=== PATIENT | male | born 1985 | race Caucasian/White ===

== ENCOUNTER 2016-09-03 17:44 | Emergency (ER) | payer BC ==
[~2016-09-03] VITALS: Ht 177.8 cm; Wt 103.3 kg
[~2016-09-03 17:44] MED LIST: ATV1 PO; CETI10TA84 PO; LAMO200T38 PO
[2016-09-03 18:03] VITALS: TEMP 36.5; Ht 177.8 cm; Wt 103.3 kg
[2016-09-03] MEDS ORDERED: LORAZEPAM 1 MG TAB SL STA (18:20)
[2016-09-03] MEDS ORDERED: ATV/1 PO (18:21)
--- NOTE | 2016-09-03 18:24 | EMERGENCY ROOM VISIT NOTE ---
History Report prepared by Judd: Aislinn Shaver Under the Supervision of: Dr. Carlos Klein M.D. First contact with patient: 18:13 Chief Complaint: SEIZURE Stated Complaint: DROWSINESS,FORGETFUL,SEIZURES Nursing Triage Summary: pt has seizure disorder, pt started on new medication on Saturday today pt having difficulty speaking, which occurs with his seizures pt speech is slow but clear at triage History of Present Illness The patient is a 30 year old male who presents to the Emergency Room with complaints of a seizure that began prior to arrival. The patient states that he has a history of seizures and states that they have been well under control over the last several years. He denies any recent Grand-mal seizures. The patient states that he last week he started taking Onfi, and states that his Lamictal was reduced. He additionally notes that he takes Keppra and Vimpat. The patient states that today he has had difficulty speaking, which is a typical symptom with his seizures. He states that he has noticed more seizures since starting the new medication. The patient denies any alcohol use. Source of History: patient Onset: prior to arrival Position: other (global) Quality: other (seizure) Note: Associated Symptoms: difficulty speaking. Review of Systems See HPI for pertinent positives & negatives. A total of 10 systems reviewed and were otherwise negative. Past Medical & Surgical Medical Problems: (1) Seizure Surgical Problems: (1) [place] teeth extracted Family History Cancer Social History Smoking Status: Never Smoker Alcohol Use: occasionally Marital Status: single Occupation Status: employed Current/Historical Medications Scheduled Lacosamide (Vimpat), 300 MG PO QPM Lacosamide (Vimpat), 200 MG PO QAM Lamotrigine (Lamictal), 300 MG PO BID Levetiracetam (Keppra), 2,000 MG PO BID Scheduled PRN Lorazepam (Ativan), 1 MG PO Q6H PRN for Anxiety/Agitation Lorazepam (Lorazepam), 1 MG PO DAILY PRN for 1ST SIGN OF SEIZURE Allergies Coded Allergies: No Known Allergies (Unverified , 09/03/16) Physical Exam Vital Signs Date Time Temp Pulse Resp B/P Pulse Ox O2 Delivery O2 Flow Rate FiO2 09/03/16 18:33 56 18 136/52 97 Room Air 09/03/16 18:21 72 09/03/16 18:03 36.5 56 20 151/87 97 Room Air Physical Exam GENERAL: Patient is a healthy-appearing well-nourished HEAD: Normocephalic atraumatic EYES: Ocular movements intact pupils equal and react to light OROPHARYNX mucous membranes are moist no exudates present no erythema or edema present NECK: Supple no nuchal rigidity CHEST: Good equal expansion LUNGS: Clear and equal to auscultation CARDIAC: Normal S1 and S2 ABDOMEN: Soft nontender no guarding BACK: No CVA tenderness EXTREMITIES: No pain upon palpation normal muscle strength in all groups no clubbing cyanosis or edema NEURO: Patient is following commands is answering questions appropriately. Alert and oriented x3 Cranial Nerves 2-12 grossly intact Medical Decision & Procedures Medications Administered Medications (Trade) Dose Ordered Sig/Ruperto Route Start Time Stop Time Status Last Admin Dose Admin Lorazepam (Ativan Tab) 1 mg NOW STAT SL 09/03/16 18:20 09/03/16 18:21 DC 09/03/16 18:51 1 MG ED Course 1815: Past medical records reviewed. The patient was evaluated in room B11A. A complete history and physical examination was performed. I discussed all the exam findings with him and I discussed the treatment plan. He verbalized complete understanding and agreement. He is ready to go home. 1819: Ordered Ativan Tab 1 mg SL. Medical Decision Differential diagnosis: Etiologies such as infection, hypoglycemia, electrolyte abnormalities, cardiac sources, intracerebral event, trauma, toxicologic, neurologic, as well as others were entertained. This is a 30-year-old male who is on a number of seizure medications. The patient is managed by a doctor in [place]. He is up here for his job. The patient is having hard time forming words and states that this is normal for him when he is having seizure outbreak. The patient notes that his medication was recently changed last week. I offered to do a full workup on the patient including blood work along with a CAT scan of the head however the patient is refusing this and is simply requesting Ativan. I stressed the need for follow- up with the patient's neurologist on for the. He was given a limited supply of Ativan. Patient was in agreement with the treatment plan. Impression Primary Impression: Seizure Scribe Attestation The scribe's documentation has been prepared under my direction and personally reviewed by me in its entirety. I confirm that the note above accurately reflects all work, treatment, procedures, and medical decision making performed by me. Departure Information Dispostion Home / Self-Care Prescriptions Lorazepam (ATIVAN) 1 Mg Tab 1 MG PO Q6H Y for Anxiety/Agitation, #20 TAB Prov: Carlos Klein MD 09/03/16 Referrals No Doctor, Assigned (PCP) Forms HOME CARE DOCUMENTATION FORM, IMPORTANT VISIT INFORMATION, School Instructions, Work Instructions Patient Instructions My [facility], Seizure Partial Additional Instructions You received narcotic or benzodiazepene medication while in the emergency room today. Do not drive, operate heavy machinery, or drink alcohol under the influence of this medication. You have been examined and treated today on an emergency basis only. This is not a substitute for, or an effort to provide, complete comprehensive medical care. It is impossible to recognize and treat all injuries or illnesses in a single emergency department visit. It is therefore important that you follow up closely with your PCP. Call as soon as possible for an appointment. Thank you for your time and consideration. I look forward to speaking with you again soon. Please don't hesitate to call us if you have any questions.
[2016-09-03 18:33] VITALS: BP 136/52; PULSE 56; O2SAT 97
[2016-09-03] MEDS ORDERED: LACO150T PO (18:37)
[2016-09-03] MEDS ORDERED: LAMO150T32 PO (18:37)
[2016-09-03] MEDS ORDERED: LACO200T PO (18:37)
[2017-03-01] MEDS ORDERED: KPP/1000 PO (11:44)
== END 2016-09-03 18:54 | disposition home or self-care (01) ==
LOC: C.EDB 17:45
DX: R56.9 Unspecified convulsions (principal); Z80.9 Family history of malignant neoplasm, unspecified; Z79.899 Other long term (current) drug therapy

== ENCOUNTER → 2017-01-28 | Outpatient (CLI) | payer BC ==
[~2017-01-28] MED LIST changes: -CETI10TA84 PO; +KPP/1000 PO; +LACO100T PO; +LACO150T PO; +LACO200T PO; +LAMO150T32 PO
[2017-01-28 10:38] LABS: HEMATOCRIT 41.8 % (42-52); MEAN CELL VOLUME 83.4 fL (80-100); MEAN CORPUSCULAR HEMOGLOBIN 29.7 pg (25-34); MEAN CORPUSCULAR HGB CONC 35.6 g/dl (32-36); MEAN PLATELET VOLUME 9.8 fL (7.4-10.4); PLATELET COUNT 176 K/uL (130-400); RED BLOOD COUNT 5.01 M/uL (4.7-6.1)
[2017-01-28 10:49] LABS: PARTIAL THROMBOPLASTIN RATIO 1.2; PROTHROMBIN TIME (PATIENT) 10.7 SECONDS (9.0-12.0)
[2017-01-28 11:11] LABS: ALT/SGPT 26 U/L (12-78); AST/SGOT 20 U/L (15-37); BLOOD UREA NITROGEN 14 mg/dl (7-18); BUN/CREATININE RATIO 11.9 (10-20); CALCIUM 9.2 mg/dl (8.5-10.1); CARBON DIOXIDE 31 mmol/L (21-32); CHLORIDE 106 mmol/L (98-107); GLUCOSE 87 mg/dl (70-99); POTASSIUM 3.9 mmol/L (3.5-5.1); SODIUM 141 mmol/L (136-145)
[2017-01-28 11:13] LABS: ALB/GLOB RATIO 1.2 (0.9-2); ALKALINE PHOSPHATASE 90 U/L (45-117)
[2017-01-28 12:48] LABS: URINE APPEARANCE CLEAR (CLEAR); URINE BILIRUBIN NEG (NEG); URINE COLOR YELLOW; URINE NITRITE NEG (NEG); URINE PH 7.5 (4.5-7.5); URINE SPECIFIC GRAVITY 1.024 (1.000-1.030); UROBILINOGEN NEG (NEG); ZZUR CULT IF INDIC CLEAN CATCH NO
[2017-01-28 12:58] LABS: MANUAL MICROSCOPIC REQUIRED? NO; REVIEW REQ? NO
== END | disposition home or self-care (01) ==
LOC: C.LAB1850 09:51
PROVIDERS: ATTEND Neurological Surgery
DX: Z01.812 Encounter for preprocedural laboratory examination (principal); Z79.01 Long term (current) use of anticoagulants; Z51.81 Encounter for therapeutic drug level monitoring; Z01.810 Encounter for preprocedural cardiovascular examination; Z01.818 Encounter for other preprocedural examination

== ENCOUNTER → 2017-01-29 | Outpatient (CLI) | payer BC ==
--- NOTE | 2017-01-29 09:50 | DIAGNOSTIC IMAGING REPORT ---
CHEST 2 VIEWS ROUTINE CLINICAL HISTORY: 31 years-old Male presenting with PRE OP. TECHNIQUE: PA and lateral views of the chest were obtained. COMPARISON: None. FINDINGS: Cardiomediastinal silhouette normal. Lungs and pleural spaces clear. Osseous structures normal. Upper abdomen normal. IMPRESSION: 1. No acute cardiopulmonary disease. Electronically signed by: Jonh Dunn M.D. 01/29/2017 9:49 AM Dictated Date/Time: 01/29/2017 9:48 AM
== END | disposition home or self-care (01) ==
LOC: C.RAD1850 09:28
PROVIDERS: ATTEND Family Medicine
DX: Z01.818 Encounter for other preprocedural examination (principal)

== ENCOUNTER → 2017-02-28 | Outpatient (CLI) | payer BC ==
[2017-02-28 13:20] LABS: HEMATOCRIT 40.9 % (42-52); MEAN CELL VOLUME 85.4 fL (80-100); PLATELET COUNT 190 K/uL (130-400); RED BLOOD COUNT 4.79 M/uL (4.7-6.1)
[2017-02-28 13:24] LABS: URINE APPEARANCE CLEAR (CLEAR); URINE BILIRUBIN NEG (NEG); URINE COLOR YELLOW; URINE EPITHELIAL CELL AUTO 0-5 /lpf (0-5); URINE NITRITE NEG (NEG); URINE SPECIFIC GRAVITY 1.012 (1.000-1.030); UROBILINOGEN NEG (NEG); ZZUR CULT IF INDIC CLEAN CATCH NO
[2017-02-28 13:30] LABS: MANUAL MICROSCOPIC REQUIRED? NO; REVIEW REQ? NO
[2017-02-28 13:35] LABS: PARTIAL THROMBOPLASTIN RATIO 1.2; PROTHROMBIN TIME (PATIENT) 10.7 SECONDS (9.0-12.0)
[2017-02-28 13:54] LABS: ALT/SGPT 22 U/L (12-78); BLOOD UREA NITROGEN 12 mg/dl (7-18); BUN/CREATININE RATIO 12.1 (10-20); CALCIUM 9.5 mg/dl (8.5-10.1); CARBON DIOXIDE 31 mmol/L (21-32); CHLORIDE 104 mmol/L (98-107); GLUCOSE 72 mg/dl (70-99); POTASSIUM 4.2 mmol/L (3.5-5.1); SODIUM 139 mmol/L (136-145)
[2017-02-28 13:57] LABS: ALB/GLOB RATIO 1.2 (0.9-2); ALKALINE PHOSPHATASE 85 U/L (45-117); AST/SGOT 20 U/L (15-37)
== END | disposition home or self-care (01) ==
LOC: C.LAB1850 11:34
PROVIDERS: ATTEND Neurological Surgery
DX: Z01.812 Encounter for preprocedural laboratory examination (principal); Z79.01 Long term (current) use of anticoagulants

== ENCOUNTER 2017-03-01 16:52 | Emergency (ER) | payer BC ==
[~2017-03-01] VITALS: Ht 182.9 cm; Wt 110.0 kg
[~2017-03-01 16:52] MED LIST changes: -ATV1 PO; -LACO100T PO; -LAMO200T38 PO
[2017-03-01 16:58] VITALS: TEMP 36.5; Ht 182.9 cm; Wt 110.0 kg
[2017-03-01] MEDS ORDERED: SODIUM CHLORIDE 0.9% 1000ML 1,000 ML IV STA (17:23)
--- NOTE | 2017-03-01 17:29 | EMERGENCY ROOM VISIT NOTE ---
History Report prepared by Judd: Romain Villagomez Under the Supervision of: Dr. Deya Fall D.O. First contact with patient: 17:05 Chief Complaint: DIZZY Stated Complaint: DIZZY,FELL OVER Nursing Triage Summary: Pt developed dizziness while working outside today and fell down, did not lose consciousness. Hit left side of head on a piece of work equipment. Feeling sick last few days with runny nose, sore throat, sneezy, and has been taking " a lot of dayquil and nyquil". Denies any nausea or vomiting. Denies any headache. Verbalizes probable poor water intake today working in the sun. History of Present Illness The patient is a 31 year old male who presents to the Emergency Room with complaints of two episodes of dizziness occurring around noon and again one hour ago. 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 He states that three hours later while walking outside he got dizzy, fell, and hit the left side of his head. The patient additionally sates that recently he has felt sick with a runny nose, sore throat, and a cough. The patient denies any fevers, chills, shortness of breath, chest pain, palpitations, nausea, and vomiting. The patient additionally states that he has been taking NyQuil and DayQuil, and he states that he has not drank enough water or had enough food today. The patient notes that he has a history of epilepsy, and he has been taking his medications very regularly including Vimpat, Keppra, and Lamictal, and he has not had any recent changes in medications or changes in caffeine intake. The patient states that his last seizure was a couple of days ago, and he states that his seizures are abnormal, and they present as a staring spell for 10 to 15 seconds. The patient states that he took lorazepam after the first episode of dizziness. He states that no one is sick around him, he denies any recent alcohol or drug use, change in bowel movements, and any urinary symptoms. Pt denies headache, change in vision, shortness of breath, and melena. The patient states that he does not drive, and he takes the bus. Source of History: patient Onset: noon and an hour ago Position: other (global) Quality: other (dizziness) Timing: resolved Associated Symptoms: + sorethroat, + cough Review of Systems See HPI for pertinent positives & negatives. A total of 10 systems reviewed and were otherwise negative. Past Medical & Surgical Medical Problems: (1) Seizure Surgical Problems: (1) [place] teeth extracted Family History Cancer Social History Smoking Status: Never Smoker Alcohol Use: occasionally Marital Status: single Occupation Status: employed Current/Historical Medications Scheduled Lacosamide (Vimpat), 200 MG PO BID Lamotrigine (Lamictal), 400 MG PO QAM Lamotrigine (Lamictal), 300 MG PO QAM Levetiracetam (Keppra), 2,000 MG PO BID Scheduled PRN Lorazepam (Lorazepam), 1 MG PO DAILY PRN for Seizure Allergies Coded Allergies: No Known Allergies (Unverified , 09/03/16) Physical Exam Vital Signs Date Time Temp Pulse Resp B/P (MAP) Pulse Ox O2 Delivery O2 Flow Rate FiO2 03/01/17 20:10 63 18 144/85 98 03/01/17 19:11 57 20 126/71 98 Room Air 64 134/83 65 135/69 03/01/17 19:10 57 18 126/71 100 Room Air 03/01/17 16:58 36.5 78 18 146/78 98 Room Air Physical Exam GENERAL: alert, well appearing, well nourished, no distress, non-toxic HEAD: Very small area of tenderness over the left parietal occipital region. No hemotympanum. No erythema of the TM. EYE EXAM: normal conjunctiva, PERRL and EOM's grossly intact OROPHARYNX: no exudate, no erythema, lips, buccal mucosa, and tongue normal and mucous membranes are moist NECK: supple, no nuchal rigidity, no adenopathy, non-tender LUNGS: Clear to auscultation. Normal chest wall mechanics HEART: no murmurs, S1 normal and S2 normal ABDOMEN: abdomen soft, non-tender, normo-active bowel sounds, no masses, no rebound or guarding. BACK: Back is symmetrical on inspection and there is no deformity, no midline tenderness, no CVA tenderness. SKIN: no rashes and no bruising UPPER EXTREMITIES: upper extremities are grossly normal. LOWER EXTREMITIES: No pitting edema. NEURO EXAM: Normal sensorium, cranial nerves II-XII grossly intact, normal speech, no gross weakness of arms, no gross weakness of legs. Gross sensation intact. Medical Decision & Procedures ER Provider Diagnostic Interpretation: Radiology results have been interpreted by the radiologist and reviewed by me. HEAD WITHOUT CONTRAST (CT) CT DOSE: 687.98 mGy.cm HISTORY: Trauma. Mental status change. chi, trauma TECHNIQUE: Multiaxial CT images of the head were performed without the use of intravenous contrast. A dose lowering technique was utilized adhering to the principles of ALARA. Comparison: 10/02/2007 Findings: The paranasal sinuses and mastoid air cells are clear. Interval right cerebral craniotomy. Craniotomy flap is in good position. Evidence for encephalomalacia involving the right temporal lobe superiorly. This is a nonacute finding although not present on the prior exam. There is no evidence for acute intracranial hemorrhage. There is no midline shift. Impression: Chronic and postoperative change. No acute intracranial abnormality. The above report was generated using voice recognition software. It may contain grammatical, syntax or spelling errors. Electronically signed by: Hector Gonzalez M.D. 03/01/2017 6:06 PM Dictated Date/Time: 03/01/2017 6:04 PM Laboratory Results 03/01/17 17:39 Red Blood Count 5.03, Mean Corpuscular Volume 82.7, Mean Corpuscular Hemoglobin 29.4, Mean Corpuscular Hemoglobin Concent 35.6, Mean Platelet Volume 10.4, Neutrophils (%) (Auto) 57.7, Lymphocytes (%) (Auto) 28.2, Monocytes (%) (Auto) 10.3, Eosinophils (%) (Auto) 3.0, Basophils (%) (Auto) 0.4, Neutrophils # (Auto ) 3.03, Lymphocytes # (Auto) 1.48, Monocytes # (Auto) 0.54, Eosinophils # (Auto ) 0.16, Basophils # (Auto) 0.02 03/01/17 17:39 Test 03/01/17 17:39 03/01/17 17:55 White Blood Count 5.25 K/uL (4.8-10.8) Red Blood Count 5.03 M/uL (4.7-6.1) Hemoglobin 14.8 g/dL (14.0-18.0) Hematocrit 41.6 % (42-52) Mean Corpuscular Volume 82.7 fL (80-100) Mean Corpuscular Hemoglobin 29.4 pg (25-34) Mean Corpuscular Hemoglobin Concent 35.6 g/dl (32-36) Platelet Count 198 K/uL (130-400) Mean Platelet Volume 10.4 fL (7.4-10.4) Neutrophils (%) (Auto) 57.7 % Lymphocytes (%) (Auto) 28.2 % Monocytes (%) (Auto) 10.3 % Eosinophils (%) (Auto) 3.0 % Basophils (%) (Auto) 0.4 % Neutrophils # (Auto) 3.03 K/uL (1.4-6.5) Lymphocytes # (Auto) 1.48 K/uL (1.2-3.4) Monocytes # (Auto) 0.54 K/uL (0.11-0.59) Eosinophils # (Auto) 0.16 K/uL (0-0.5) Basophils # (Auto) 0.02 K/uL (0-0.2) RDW Standard Deviation 38.5 fL (36.4-46.3) RDW Coefficient of Variation 12.8 % (11.5-14.5) Immature Granulocyte % (Auto) 0.4 % Immature Granulocyte # (Auto) 0.02 K/uL (0.00-0.02) Anion Gap 8.0 mmol/L (3-11) Est Creatinine Clear Calc Drug Dose 107.4 ml/min Estimated GFR () 85.5 Estimated GFR (Non- 73.7 BUN/Creatinine Ratio 9.1 (10-20) Calcium Level 9.5 mg/dl (8.5-10.1) Magnesium Level 2.0 mg/dl (1.8-2.4) Total Bilirubin 0.5 mg/dl (0.2-1) Aspartate Amino Transf (AST/SGOT) 21 U/L (15-37) Alanine Aminotransferase (ALT/SGPT) 24 U/L (12-78) Alkaline Phosphatase 92 U/L (45-117) Troponin I < 0.015 ng/ml (0-0.045) Total Protein 7.9 gm/dl (6.4-8.2) Albumin 4.4 gm/dl (3.4-5.0) Globulin 3.5 gm/dl (2.5-4.0) Albumin/Globulin Ratio 1.3 (0.9-2) Thyroid Stimulating Hormone (TSH) 1.720 uIu/ml (0.300-4.500) Ethyl Alcohol mg/dL < 3.0 mg/dl (0-3) Urine Opiates Screen NEG (NEG) Urine Methadone, Qualitative NEG (NEG) Urine Barbiturates NEG (NEG) Urine Phencyclidine (PCP) Level NEG (NEG) Ur Amphetamine/Methamphetamine NEG (NEG) MDMA (Ecstasy) Screen NEG (NEG) Urine Benzodiazepines Screen NEG (NEG) Urine Cocaine Metabolite NEG (NEG) Urine Marijuana (THC) NEG (NEG) Laboratory results per my review. Medications Administered Medications (Trade) Dose Ordered Sig/Ruperto Route Start Time Stop Time Status Last Admin Dose Admin Sodium Chloride 1,000 ml @ 999 mls/hr Q1H1M STAT IV 03/01/17 17:23 03/01/17 18:23 DC 03/01/17 17:54 999 MLS/HR ECG Indication: other (dizziness) Rate (beats per minute): 61 Rhythm: normal sinus Findings: no acute ischemic change, no ectopy, other (Normal axis, normal intervals, baseline artifact) ED Course 1707: The patient was evaluated in room B12. A complete history and physical exam was performed. 1723: Sodium Chloride 1000 ml @ 999 mls/hr IV 1851: Upon reevaluation, the patient is feeling better. I discussed the findings and the treatment plan with the patient. He verbalizes agreement and understanding. He was discharged home. Medical Decision Differential diagnosis: Etiologies such as vasovagal event, infection, hypoglycemia, electrolyte abnormalities, cardiac sources, intracerebral event, toxicologic, neurologic, as well as others were entertained. Pt well appearing here. Unclear if first episode of "staring and lightheadedness" was his seizure or a near syncope due to poor po intake and heat exposure. Unclear etiology of 2nd incident. Possible orthostatic or vasovagal episode. Non focal neuro exam now. No evidence of dysrhythmia on tele. Labs and imaging reassuring. Attempted to call and update medical support specialist based on the instructions of the paperwork that accompanied the patient from his employer. Pt with negative orthostatics, ambulating with a steady gait and no recurrent complaints or episodes here. I have a low suspicion for any additional occult traumatic injury. Patient with known seizure disorder, complained with medications, did not feel required medication change at this time. Is already under the care of a neurologist and will pursue additional close follow-up with them. Patient here comfortable with plan for close outpatient follow-up, discussed symptoms to watch and return for , patient does not drive, he verbalized understanding of all results, differential diagnosis, and plan and was agreeable. No evidence for infectious etiology or other intracranial pathology, doubt central venous sinus thrombus, doubt bacteremia/sepsis. No dysrhythmias noted on telemetry. Doubt cardiac etiology. Medication Reconcilliation Current Medication List: was personally reviewed by me Blood Pressure Screening Patient's blood pressure: Elevated blood pressure Blood pressure disposition: Elevated BP felt to be situational Impression Primary Impression: Dizziness Additional Impressions: Fall CHI (closed head injury) Syncope Scribe Attestation The scribe's documentation has been prepared under my direction and personally reviewed by me in its entirety. I confirm that the note above accurately reflects all work, treatment, procedures, and medical decision making performed by me. Departure Information Dispostion Home / Self-Care Referrals No Doctor, Assigned (PCP) Forms HOME CARE DOCUMENTATION FORM, IMPORTANT VISIT INFORMATION Patient Instructions My [facility] Additional Instructions Please take your medications as prescribed. Please drink plenty of fluid to stay well hydrated. Please eat at regular intervals. Please be cautious using cough/cold medications as they can have a sedating effect. If you have any recurrent episodes, feel lightheaded, dizzy, develop chest pain/palpitations, trouble breathing, worsening headache, vomiting, vision changes, numbness/ tingling, or you have any other new or concerning symptoms or feel you have had a recurrent seizure, please return to the emergency room. Please be cautious at work that you take regular breaks and are staying well hydrated, avoid prolonged heat exposure or prolonged strenuous activity. Problem Qualifiers Additional Impressions: Fall Encounter type: initial encounter Qualified Codes: W19.XXXA - Unspecified fall, initial encounter CHI (closed head injury) Encounter type: initial encounter Qualified Codes: S09.90XA - Unspecified injury of head, initial encounter Syncope Syncope type: unspecified Qualified Codes: R55 - Syncope and collapse
[2017-03-01 18:06] LABS: BASO % 0.4 %; BASO ABS # 0.02 K/uL (0-0.2); COMPLETE YES; HEMATOCRIT 41.6 % (42-52); IG% 0.4 %; LYMPH % 28.2 %; LYMPH ABS # 1.48 K/uL (1.2-3.4); MEAN CELL VOLUME 82.7 fL (80-100); MEAN CORPUSCULAR HEMOGLOBIN 29.4 pg (25-34); MEAN CORPUSCULAR HGB CONC 35.6 g/dl (32-36); MEAN PLATELET VOLUME 10.4 fL (7.4-10.4); MONO % 10.3 %; NEUT % 57.7 %; PLATELET COUNT 198 K/uL (130-400); RED BLOOD COUNT 5.03 M/uL (4.7-6.1); WHITE BLOOD COUNT 5.25 K/uL (4.8-10.8)
--- NOTE | 2017-03-01 18:07 | DIAGNOSTIC IMAGING REPORT ---
HEAD WITHOUT CONTRAST (CT) CT DOSE: 687.98 mGy.cm HISTORY: Trauma. Mental status change. chi, trauma TECHNIQUE: Multiaxial CT images of the head were performed without the use of intravenous contrast. A dose lowering technique was utilized adhering to the principles of ALARA. Comparison: 10/02/2007 Findings: The paranasal sinuses and mastoid air cells are clear. Interval right cerebral craniotomy. Craniotomy flap is in good position. Evidence for encephalomalacia involving the right temporal lobe superiorly. This is a nonacute finding although not present on the prior exam. There is no evidence for acute intracranial hemorrhage. There is no midline shift. Impression: Chronic and postoperative change. No acute intracranial abnormality. The above report was generated using voice recognition software. It may contain grammatical, syntax or spelling errors. Electronically signed by: Hector Gonzalez M.D. 03/01/2017 6:06 PM Dictated Date/Time: 03/01/2017 6:04 PM
[2017-03-01] MEDS ORDERED: LAMO200T38 PO (18:17)
[2017-03-01] MEDS ORDERED: LACO100T PO (18:17)
[2017-03-01 18:24] LABS: ALT/SGPT 24 U/L (12-78); BLOOD UREA NITROGEN 12 mg/dl (7-18); BUN/CREATININE RATIO 9.1 (10-20); CALCIUM 9.5 mg/dl (8.5-10.1); CARBON DIOXIDE 30 mmol/L (21-32); CHLORIDE 101 mmol/L (98-107); GLUCOSE 91 mg/dl (70-99); POTASSIUM 3.6 mmol/L (3.5-5.1); SODIUM 139 mmol/L (136-145)
[2017-03-01 18:34] LABS: ALB/GLOB RATIO 1.3 (0.9-2); ALKALINE PHOSPHATASE 92 U/L (45-117); AST/SGOT 21 U/L (15-37)
[2017-03-01] MEDS ORDERED: ATV1 PO (18:37)
[2017-03-01 18:40] LABS: BENZODIAZEPINE, URINE NEG (NEG); COCAINE,URINE NEG (NEG); PHENCYCLIDINE, URINE NEG (NEG)
[2017-03-01 20:10] VITALS: BP 144/85; PULSE 63; O2SAT 98
== END 2017-03-01 20:12 | disposition home or self-care (01) ==
LOC: C.EDB 16:54
DX: R42 Dizziness and giddiness (principal); S09.90XA Unspecified injury of head, initial encounter; R55 Syncope and collapse; W18.39XA Other fall on same level, initial encounter; Y93.89 Activity, other specified; Y99.0 Civilian activity done for income or pay; G40.909 Epilepsy, unspecified, not intractable, without status epilepticus; Z98.818 Other dental procedure status; Z79.899 Other long term (current) drug therapy